=== PATIENT | male | born 1990 | race Caucasian/White ===

== ENCOUNTER 2019-06-17 16:59 | Emergency (ER) | payer MEDICAID ==
[~2019-06-17] VITALS: Ht 180.3 cm; Wt 79.4 kg
[2019-06-17 17:48] VITALS: BP 115/60
--- NOTE | 2019-06-17 17:48 | NUR ---
ED Nurse Note:pt. came with rash on right arm for 3 days which started after insect bite, no pain reported
--- NOTE | 2019-06-17 18:11 | Emergency Room Report ---
History of Present Illness General Chief Complaint: Skin Rash/Abscess Source: Patient Present Illness HPI Patient reports insect bites to his left hand onset 3 days ago with worsening erythema and itchiness. He did not see what kind of insect stung him. He denies any throat closure or shortness of breath. He has some bites to his right hand as well but not as bad as his left. Denies any numbness or tingling or fever. Allergies: Coded Allergies: No Known Allergies (Unverified , 06/17/19) Patient History Past Medical History: see triage record Reviewed Nursing Documentation: PMH: Agreed; PSxH: Agreed Nursing Documentation-PM Past Medical History: No Stated History Review of Systems All Other Systems: negative except mentioned in HPI Physical Exam Vital Signs Date Time Temp Pulse Resp B/P (MAP) Pulse Ox O2 Delivery O2 Flow Rate FiO2 06/17/19 17:12 97.5 70 18 115/60 (78) 98 Room Air Skin: other - Several insect bites to the left hand with surrounding erythema and a very thin streak of erythema tracking up the left arm. No abscess. Medical Decision Making PA Attestation Dr. Rondon is my supervising physician whom patient management and care has been discussed with. Diagnostic Impression: Primary Impression: Lymphangitis ER Course Pt. presents to the ED c/o insect bites to the hand with erythema streaking up his arm. Ddx considered but are not limited to cellulitis, allergic reaction, abscess, lymphangitis, compartment syndrome, tenosynovitis, necrotizing fasciitis. Vital signs: are WNL, pt. is afebrile H&PE are most consistent with lymphangitis versus cellulitis versus allergic reaction ORDERS: none required at this time, the diagnosis is clinical ED INTERVENTIONS: None required at this time. DISCHARGE: At this time pt. is stable for d/c to home. Will treat for lymphangitis/cellulitis with doxycycline and allergic reaction with Benadryl and hydrocortisone cream. Strict return precautions given if patient's symptoms worsen or he starts to develop fever. Will provide printed patient care instructions, and any necessary prescriptions. Advised to follow up outpatient in 1-2 days. Care plan and follow up instructions have been discussed with the patient prior to discharge. Last Vital Signs Date Time Temp Pulse Resp B/P (MAP) Pulse Ox O2 Delivery O2 Flow Rate FiO2 06/17/19 17:48 97.5 18 115/60 98 Room Air 3/9/20 17:12 70 Disposition: HOME, SELF-CARE Condition: Stable Scripts Diphenhydramine Hcl* (BENADRYL*) 25 Mg Capsule 25 MG ORAL Q6H PRN for Itching, #30 CAP Prov: Carolina Thompson N. P.A. 06/17/19 Hydrocortisone (Hydrocortisone) y Cr 1 APPLIC TOPIC BID for 14 Days, #30 GM Prov: Carolina Thompson N. P.A. 06/17/19 Doxycycline Monohydrate* (DOXYCYCLINE MONOHYDRATE*) 100 Mg Capsule 100 MG ORAL TWICE A DAY for 10 Days, #20 CAP 0 Refills Prov: Carolina Thompson N. P.AAudrey 06/17/19 Carolina Thompson P.AAudrey Jun 17, 2019 18:11
[2019-06-17] MEDS ORDERED: DOXYCYCLINE MO100 MG ORAL (18:33)
[2019-06-17] MEDS ORDERED: ANUSOL-HC CREAM30 GM TOPIC (18:33)
[2019-06-17] MEDS ORDERED: BENADRYL25 MG ORAL (18:33)
[2019-06-17 18:35] VITALS: BP 110/67
--- NOTE | 2019-06-17 18:37 | NUR ---
ER DISCHARGE NOTE: Patient is cleared to be discharged per ERMD, pt is aox4, on room air, with stable vital signs. pt was given dc and prescription instructions, pt was able to verbalize understanding, pt id band removed. pt is able to ambulate with steady gait. pt took all belongings.
== END 2019-06-17 18:37 | disposition home or self-care (01) ==
LOC: EMR 17:40
DX: I89.1 Lymphangitis (principal); S60.562A Insect bite (nonvenomous) of left hand, initial encounter; W57.XXXA Bitten or stung by nonvenomous insect and other nonvenomous arthropods, initial encounter; Y92.9 Unspecified place or not applicable
CPT/HCPCS: 99282